=== PATIENT | female | born 1930 | race Caucasian/White ===

== ENCOUNTER 2016-11-22 10:13 | Day surgery (SDC) | payer MEDICARE, OTHER ==
[~2016-11-22 10:13] MED LIST: KETOROLAC TROMETHAMINE 0.45% 4 DROP/0.4 ML DROPERETTE OD PRN
[2016-11-22] MEDS: BESIFLOXACIN HCL 0.6% OPH SUSP 5 ML BOTTLE OD PRN ×3 (11:01→12:12)
[2016-11-22] MEDS: TROPICAMIDE 1% OPH SOLN 3 ML OD PRN ×3 (11:01→11:21)
[2016-11-22] MEDS: CYCLOPENTOLATE 0.2%/PHENYLEPHRINE 1% OPH SOLN 2 ML OD PRN ×3 (11:01→11:21)
[2016-11-22] MEDS: TETRACAINE HCL 0.5% OPH SOLN 0.6 ML DROPERETTE OD PRN ×3 (11:02→11:47)
[2016-11-22] MEDS ORDERED: LIDOCAINE 1% INJ-PF (10 MG/ML) 30 ML SDV ONE (11:11)
[2016-11-22] MEDS ORDERED: EPINEPHRINE INJ/PF 1 MG/1 ML AMPULE ONE (11:11)
[2016-11-22] MEDS ORDERED: TOBRAMYCIN SULFATE/DEXAMETH OPH OINTMENT 3.5 GM ONE (11:11)
[2016-11-22] MEDS ORDERED: CHONDR SU A NA/HYALUR INTRAOC KIT (SURGICARE) ONE (11:11)
[2016-11-22] MEDS ORDERED: MIDAZOLAM 2 MG/2 ML INJ ONE (11:14)
== END 2016-11-22 13:01 | disposition home or self-care (01) ==
LOC: SC 10:13
PROVIDERS: ATTEND Ophthalmology
PROC: 08RJ3JZ Replacement of Right Lens with Synthetic Substitute, Percutaneous Approach (ICD-10-PCS; principal; 2016-11-22 11:15)
DX: H25.11 Age-related nuclear cataract, right eye (principal); J45.909 Unspecified asthma, uncomplicated; I10 Essential (primary) hypertension; Z79.899 Other long term (current) drug therapy; Z79.51 Long term (current) use of inhaled steroids; Z88.1 Allergy status to other antibiotic agents; Z88.8 Allergy status to other drugs, medicaments and biological substances
CPT/HCPCS: 66984; V2630; J2250; J3490 ×3; A9270; J0171; 142

== ENCOUNTER 2016-12-06 10:48 | Day surgery (SDC) | payer MEDICARE, OTHER ==
[~2016-12-06 10:48] MED LIST changes: +CHONDR SU A NA/HYALUR INTRAOC KIT (SURGICARE) ONE; +EPINEPHRINE INJ/PF 1 MG/1 ML AMPULE ONE; -KETOROLAC TROMETHAMINE 0.45% 4 DROP/0.4 ML DROPERETTE OD PRN; +KETOROLAC TROMETHAMINE 0.45% 4 DROP/0.4 ML DROPERETTE OS PRN; +LIDOCAINE 1% INJ-PF (10 MG/ML) 30 ML SDV ONE
[2016-12-06] MEDS: CYCLOPENTOLATE 0.2%/PHENYLEPHRINE 1% OPH SOLN 2 ML OS PRN ×3 (11:03→11:23)
[2016-12-06] MEDS: TROPICAMIDE 1% OPH SOLN 3 ML OS PRN ×3 (11:03→11:23)
[2016-12-06] MEDS: BESIFLOXACIN HCL 0.6% OPH SUSP 5 ML BOTTLE OS PRN ×4 (11:03→11:48)
[2016-12-06] MEDS: TETRACAINE HCL 0.5% OPH SOLN 0.6 ML DROPERETTE OS PRN ×3 (11:04→11:33)
[2016-12-06] MEDS ORDERED: MIDAZOLAM 2 MG/2 ML INJ ONE (11:18)
[2016-12-06] MEDS ORDERED: FENTANYL CITRATE INJ/PF 100 MCG/2 ML AMPUL ONE (11:18)
[2016-12-06] MEDS: TOBRAMYCIN SULFATE/DEXAMETH OPH OINTMENT 3.5 GM ONE ×2 (11:39→11:48)
== END 2016-12-06 12:36 | disposition home or self-care (01) ==
LOC: SC 10:48
PROVIDERS: ATTEND Ophthalmology
PROC: 08RK3JZ Replacement of Left Lens with Synthetic Substitute, Percutaneous Approach (ICD-10-PCS; principal; 2016-12-06 11:15)
DX: H25.12 Age-related nuclear cataract, left eye (principal); Z79.51 Long term (current) use of inhaled steroids; Z79.899 Other long term (current) drug therapy; Z88.8 Allergy status to other drugs, medicaments and biological substances; Z96.1 Presence of intraocular lens; J45.909 Unspecified asthma, uncomplicated; I10 Essential (primary) hypertension; Z88.1 Allergy status to other antibiotic agents
CPT/HCPCS: 66984; V2630; J2250; J3490 ×3; A9270; J0171; 142; J3010

== ENCOUNTER → 2019-01-27 | Outpatient (CLI) | payer MEDICARE, OTHER ==
[2019-01-27 10:11] LABS: ABSOLUTE EOSINOPHILS # (AUTO) 0.1 10^3/uL (0.0-0.6); ABSOLUTE LYMPHOCYTES (AUTO) 0.9 10^3/uL (0.5-4.7); ABSOLUTE MONOCYTES (AUTO) 0.5 10^3/uL (0.1-1.4); ABSOLUTE NEUT (AUTO) 4.7 10^3/uL (1.7-8.2); BASOPHILS % (AUTO) 0.7 % (0-2); HEMATOCRIT 40.4 % (36.0-47.0); HEMOGLOBIN 13.4 g/dL (12.0-15.5); LYMPHOCYTES % (AUTO) 14.4 % (13-45); MEAN CORPUSCULAR HGB CONC 33.2 g/dL (32.0-36.0); MEAN CORPUSCULAR VOLUME 84 fl (80-97); MONOCYTES % (AUTO) 8.1 % (3-13); PLATELET COUNT 183 10^3/uL (150-450); RED BLOOD COUNT 4.78 10^6/uL (3.72-5.28); SEGMENTED NEUTROPHILS % (AUTO) 74.8 % (42-78); TOTAL CELLS COUNTED % (AUTO) 100 %; WHITE BLOOD COUNT 6.3 10^3/uL (4.0-10.5)
[2019-01-27 10:39] LABS: ALANINE AMINOTRANSFERASE 31 U/L (9-52); ALKALINE PHOSPHATASE 71 U/L (38-126); ANION GAP 9 (5-19); ASPARTATE AMINO TRANSFERASE 31 U/L (14-36); BILIRUBIN,DIRECT 0.2 mg/dL (0.0-0.4); BILIRUBIN,TOTAL 0.6 mg/dL (0.2-1.3); BLOOD UREA NITROGEN 17 mg/dL (7-20); CALCIUM 10.5 mg/dL (8.4-10.2); CARBON DIOXIDE 33 mmol/L (22-30); CHLORIDE 94 mmol/L (98-107); GLUCOSE 102 mg/dL (75-110); POTASSIUM 4.4 mmol/L (3.6-5.0); SODIUM 135.8 mmol/L (137-145); TOTAL PROTEIN 6.4 g/dL (6.3-8.2); TRIGLYCERIDES 39 mg/dL (<150)
[2019-01-27 10:50] LABS: DIRECT LDL 74 mg/dL (<100)
== END ==
LOC: OD 09:26
PROVIDERS: ATTEND Family Medicine Geriatric Medicine
DX: I10 Essential (primary) hypertension (principal); K21.9 Gastro-esophageal reflux disease without esophagitis; Z79.899 Other long term (current) drug therapy
CPT/HCPCS: 36415; 80053; 80061; 84443; 85025

== ENCOUNTER → 2019-03-25 | Outpatient (CLI) | payer MEDICARE, OTHER ==
--- NOTE | 2019-03-25 14:51 | RADIOLOGY REPORT (SQ) ---
EXAM DESCRIPTION: RIBS BILATERAL W/PA CHEST COMPLETED DATE/TIME: 03/25/2019 1:38 pm REASON FOR STUDY: PLEURODYNIA R07.81 PLEURODYNIA COMPARISON: None. NUMBER OF VIEWS: Eight views TECHNIQUE: Images acquired of the right and left ribs in the area of focal concern. LIMITATIONS: None. FINDINGS: RIBS: Old right eleventh rib fracture. No acute displaced fracture. LUNGS: Biapical pleuroparenchymal changes may represent scar/fibrosis, more so on the right. Left mi d and lower lung zone and right base atelectasis or scar. Small calcified granuloma in the right octavia g. No obvious pneumothorax. No pleural effusion. Cardiomegaly, no evidence for failure. OTHER: Levoconvex scoliosis lumbar spine. IMPRESSION: 1. Old right eleventh rib fracture. NO ACUTE DISPLACED RIB FRACTURE. 2. Linear subsegmental scar or atelectasis at the right lung base in the left mid-lower lung zones. Biapical scar/fibrosis, more so on the right 3. Additional findings as above. COMMENT: SITE OF TRAUMA/COMPLAINT MARKED/STAMP COMPLETED: NO. TECHNICAL DOCUMENTATION: JOB ID: [id number] [employer]- All Rights Reserved Reading location - IP/workstation name: [email or web address]
== END ==
LOC: OD 13:07
PROVIDERS: ATTEND Family Medicine Geriatric Medicine
DX: R07.81 Pleurodynia (principal); Z87.81 Personal history of (healed) traumatic fracture
CPT/HCPCS: 71111